=== PATIENT | female | born 1955 | race Caucasian/White ===

== ENCOUNTER 2018-10-19 17:31 | Emergency (ER) | payer BC ==
[2018-10-19 19:19] LABS: #Eosinphils 0.1 thou/uL (0.0-0.7); #Lymphocytes 2.6 thou/uL (1.20-3.40); #Monocytes 0.6 thou/uL (0.11-0.59); #Neutrophils 3.4 thou/uL (1.40-6.50); %Basophils 0.2 % (0.0-1.0); %Eosinophils 1.6 % (0.0-10.0); %Lymphocytes 38.3 % (21.0-51.0); %Monocytes 8.3 % (0.0-10.0); %Neutrophils 51.5 % (42.0-75.0); Mean Corpuscular HGB CONC 33.5 g/dL (32.0-36.0); Mean Corpuscular Hemoglobin 27.2 pg (27.0-31.0); Mean Corpuscular Volume 81.2 fL (78.0-98.0); Mean Platelet Volume 7.7 fL (7.4-10.4); Platelet Count 197 thou/uL (130-400); RBC Distribution Width 13.4 % (11.5-14.5); Red Blood Cell (RBC) Count 5.16 mill/uL (4.20-5.40); White Blood Cell (WBC) Count 6.7 thou/uL (4.8-10.8)
[2018-10-19 19:37] LABS: ALT (SGPT) 22 U/L (8-55); AST (SGOT) 15 U/L (5-34); Albumin 4.5 g/dL (3.4-4.8); Alkaline Phosphatase 104 U/L (40-150); Anion Gap 13 mmol/L (10-20); BUN (Urea Nitrogen) 9 mg/dL (9.8-20.1); Bilirubin, Total 0.3 mg/dL (0.2-1.2); Calc. Creatinine Clearance 0 mL/min (70-130); Calcium 9.5 mg/dL (7.8-10.44); Carbon Dioxide 28 mmol/L (23-31); Chloride 101 mmol/L (98-107); Estimated GFR-MDRD 72; Globulin 2.9 g/dL (2.4-3.5); Glucose 294 mg/dL (80-115); Potassium 4.1 mmol/L (3.5-5.1); Protein, Total 7.4 g/dL (6.0-8.3); Sodium 138 mmol/L (136-145)
--- NOTE | 2018-10-19 20:32 | ULT ---
RIGHT LOWER EXTREMITY VENOUS DUPLEX EXAM: 10/19/18 HISTORY: Right leg pain. Real time color doppler evaluation of the right lower extremity was performed from groin to calf. Thi s includes evaluation of common femoral, superficial and profunda femoral, saphenous, popliteal, and posterior tibial veins. It shows a patent deep venous system with normal compressibility and augmenta tion. Within the more medial side of the leg below the knee is a tiny fluid collection measuring 3 to 4 mm in width and 14 mm in length. IMPRESSION: No evidence of DVT of the right lower extremity. POS: [facility]
--- NOTE | 2018-10-19 21:59 | RAD ---
2 VIEWS RIGHT TIBIA AND FIBULA: Date: 10/19/18 HISTORY: Cystic lesion right lower leg. FINDINGS: No fracture or dislocation seen involving the right tibia or fibula. No sclerotic or lytic osseous le sarai is seen. No other osseous abnormality. IMPRESSION: No acute osseous abnormality involving the right tibia or fibula. POS: [facility]
== END 2018-10-19 21:40 | disposition short-term general hospital (02) ==
LOC: ERS 17:31
DX: L72.9 Follicular cyst of the skin and subcutaneous tissue, unspecified (principal); I10 Essential (primary) hypertension; E11.9 Type 2 diabetes mellitus without complications; I25.10 Atherosclerotic heart disease of native coronary artery without angina pectoris; Z79.84 Long term (current) use of oral hypoglycemic drugs; Z79.899 Other long term (current) drug therapy
CPT/HCPCS: 36415; 80053; 83880; 85025

== ENCOUNTER 2018-12-01 15:22 | Outpatient (CLI) | payer BC ==
--- NOTE | 2018-12-01 15:43 | RAD ---
CHEST TWO VIEWS: 12/01/18 HISTORY: Chest pain. COMPARISON: 12/13/07. FINDINGS: The cardiac silhouette and pulmonary vasculature are unremarkable. Mediastinum is midline. No conflue nt air space consolidation, pneumothorax or pleural fluid. IMPRESSION: No active cardiopulmonary abnormalities are demonstrated. POS: [facility]
== END 2018-12-01 15:23 | disposition home or self-care (01) ==
LOC: RAD-FRANK 15:22
PROVIDERS: ATTEND Nurse Practitioner Family
DX: R07.9 Chest pain, unspecified (principal)
CPT/HCPCS: 71046